=== PATIENT | female | born 1960 | race Caucasian/White ===

== ENCOUNTER 2017-01-29 01:39 | Emergency (ER) | payer OTHER ==
[2017-01-29] MEDS ORDERED: XANAX PO ONE (01:50)
[2017-01-29] MEDS ORDERED: SOLU-MEDROL IV ONE (01:50)
[2017-01-29] MEDS ORDERED: BENADRYL IV ONE (01:50)
[2017-01-29] MEDS ORDERED: TYLENOL PO ONE (01:51)
--- NOTE | 2017-01-29 02:01 | PROVIDER DOCUMENTATION ---
HPI-General Adult - General Chief Complaint: Allergic Reaction Stated Complaint: allergic reaction Time Seen by Provider: 01/29/17 01:48 Source: patient Allergies/Adverse Reactions: Patient Allergies Allergy/AdvReac Type Severity Reaction Status Date / Time Sulfa (Sulfonamide Allergy Severe SHORTNESS Verified 01/29/17 01:54 Antibiotics) OF BREATH aspirin AdvReac Severe PUD/GASTRIC Verified 01/29/17 01:54 IRRITATION pregabalin [From Lyrica] AdvReac Severe DIZZINESS Verified 01/29/17 01:54 fentanyl [From Duragesic] AdvReac Intermediate NAUSEA Verified 01/29/17 01:54 morphine AdvReac Intermediate NAUSEA Verified 01/29/17 01:54 Home Medications: Home Medication List Medication Instructions Recorded Confirmed Last Taken Type Alprazolam [Xanax] 1 mg PO BID PRN 01/29/17 01/29/17 01/28/17 History Amitriptyline [Elavil] 50 mg PO HS 01/29/17 01/29/17 01/28/17 History Amlodipine Besylate [Norvasc] 5 mg PO DAILY 01/29/17 01/29/17 01/28/17 History Dicyclomine [Bentyl] 20 mg PO BID PRN 01/29/17 01/29/17 Unknown History Estradiol 1 mg PO DAILY 01/29/17 01/29/17 01/28/17 History Famotidine [Pepcid] 20 mg PO BID #30 tablet 01/29/17 Unknown Rx Furosemide [Lasix] 20 mg PO DAILY 01/29/17 01/29/17 01/28/17 History Hydrocodone/Acetaminophen [[place] 1 each PO BID PRN 01/29/17 01/29/17 01/28/17 History 10-325 Tablet] Methylprednisolone [Medrol Dosepak] 4 mg PO DIRECTED #1 package 01/29/17 Unknown Rx Nebivolol HCl [Bystolic] 10 mg PO DAILY 01/29/17 01/29/17 01/28/17 History Potassium Chloride 20 meq PO DAILY 01/29/17 01/29/17 01/28/17 History Pramipexole [Mirapex] 0.25 mg PO QHS 01/29/17 01/29/17 01/28/17 History Tizanidine HCl [Zanaflex] 4 mg PO DAILY 01/29/17 01/29/17 Unknown History - History of Present Illness -Gen Adult Nature of Presenting Problems: Pt is a 56 yof who presents to ER via EMS with CC of an allergic reaction. Pt reports that she ate shrimp last night at approximately 2230 and at 0030, pt began to develop hives, swollen lips, and itched all over. 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 Location of Pain/Injury: reports: generalized Pain Radiation: reports: no radiation Quality of Pain: reports: other (itching) Severity: reports: moderate Onset/Duration: reports: 1-3 hours ago Timing: reports: improving Context/Activities at Onset: reports: eating Associated Symptoms: reports: shortness of breath, other (itching; swollen lips) . denies: anxiety, arm pain, back/neck pain, chest pain, constipation, cough, diaphoresis, diarrhea, dizziness, EENT symptoms, fatigue, loss of appetite, muscle aches, nausea, rash, pain with inspiration, swelling/mass in abdomen, syncope, vomiting, weakness, trouble walking Review of Systems - Adult - REVIEW OF SYSTEMS - ADULT Constitutional: denies: chills, fever, fatique, night sweats, weight gain, weight loss Eyes: reports: no symptoms reported Ears, Nose, Mouth & Throat: reports: no symptoms reported Cardiovascular: reports: no symptoms reported Respiratory: reports: no symptoms reported Gastrointestinal: reports: no symptoms reported Genitourinary: reports: no symptoms reported Musculoskeletal: reports: no symptoms reported Integumentary: reports: itching. denies: hives, hair loss, mole changes, nail changes, rash, skin sores/ulcer, skin thickening Neurological: reports: no symptoms reported Psychiatric: reports: no symptoms reported Endocrine: reports: no symptoms reported Hematologic/Lymphatic: reports: no symptoms reported Allergic/Immunologic: reports: allergic reactions, food allergy, hives. denies : allergic rhinitis, asthma, eczema, frequent infections, hay fever, positive PPD, urticaria All Other Systems: Reviewed and Negative Past History - Adult - PAST MEDICAL HISTORY-ADULT Review of Records: reports: Nursing Assessment Review, Medications Reviewed Cardiovascular: reports: HTN Respiratory: reports: COPD Musculoskeletal: reports: arthritis, fibromyalgia - PRIOR SURGERIES/PROCEDURES Surgical/Procedure History: reports: hysterectomy - IMMUNIZATION STATUS Childhood Immunizations: See Nurse Assessment Flu Vaccine: See Nurse Assessment Physical Exam-General - PHYSICAL EXAM-ADULT Initial Vital Signs Reviewed: Yes - CONSTITUTIONAL General Appearance: alert, moderate distress. negative: appears well, no apparent distress, mild distress, severe distress, cachetic, obese, thin, anxious, lethargic, slow to respond, obtunded, combative - RESPIRATORY Respiratory: chest non-tender, lungs clear, normal breath sounds, no pleuratic chest pain, no respiratory distress, no accessory muscle use. negative: respiratory distress, decreased breath sounds, accessory muscle use, wheezing - CARDIOVASCULAR Cardiovascular: normal peripheral pulses, regular rate, rhythm. negative: bradycardia, tachycardia, irregularly irregular - GASTROINTESTINAL (ABDOMEN) Abdominal Exam: normal bowel sounds, non tender, soft. negative: abnormal bowel sounds, distended, tenderness, mass - SKIN Integumentary: normal turgor, warm/dry, other (flush). negative: normal color - NEUROLOGIC Neurologic: grossly normal, no motor/sensory deficits. negative: facial droop, focal weakness, motor weakness, sensory deficit - PSYCHIATRIC Psych/Mental Status: normal thought content, normal thought process, oriented x 3, anxious. negative: normal mood/affect Progress - PLAN OF CARE/RESULTS Progress/Plan/Lab Results: Vital Signs - 24 hr 01/29/17 01/29/17 01:47 02:17 Temperature 96.9 F L Pulse Rate 77 79 Respiratory 20 20 Rate Blood Pressure 139/88 119/72 O2 Sat by Pulse 98 97 Oximetry Orders Category Date Time Status Acetaminophen [Tylenol] Med 01/29/17 01:51 Discontinued 650 mg PO NOW ONE Alprazolam [Xanax] Med 01/29/17 01:50 Discontinued 0.5 mg PO NOW ONE Diphenhydramine [Benadryl] Med 01/29/17 01:50 Discontinued 50 mg IV NOW ONE Methylprednisolone Sod Succ [Solu-Medrol] Med 01/29/17 01:50 Discontinued 125 mg IV NOW ONE Departure - Departure Time of Disposition Order: 02:47 DIAGNOSIS: Food allergy Allergic reaction Qualifiers: Encounter type: initial encounter Qualified Code(s): T78.40XA - Allergy, unspecified, initial encounter Disposition: HOME 01 Certified Medical Emergency: Emergent Condition: Stable Additional Instructions: ED Follow Up Instructions: You have been treated by a care provider in the Emergency Department. These instructions are being provided to you so you can have an understanding of how to care for yourself upon discharge. Upon discharge from the Emergency Department, you are responsible for making arrangements for follow-up care by a physician of your choice. Take all prescribed medications as directed. Return to the Emergency Department immediately for any new or worsening symptoms. You may call the Physician Referral phone number at [phone] to obtain a list of Physicians who are taking new patients. Prescriptions: Methylprednisolone [Medrol Dosepak] 4 mg PO DIRECTED #1 package Famotidine [Pepcid] 20 mg PO BID #30 tablet Attestation - Scribe Verification/Attestation Scribe:: Jasper Oropeza Acting as Scribe for:: George Siu Scribe documention review:: This chart was documented by a scribe and accurately reflects the service the provider performed and the decisions made by the provider.
[2017-01-29 03:46] VITALS: BP 106/67
== END 2017-01-29 03:51 | disposition home or self-care (01) ==
LOC: EDBD → ED 01:39
DX: T78.1XXA Other adverse food reactions, not elsewhere classified, initial encounter (principal); L50.9 Urticaria, unspecified; R22.0 Localized swelling, mass and lump, head; L29.9 Pruritus, unspecified; R06.02 Shortness of breath; I10 Essential (primary) hypertension; J44.9 Chronic obstructive pulmonary disease, unspecified; M19.90 Unspecified osteoarthritis, unspecified site; Z79.899 Other long term (current) drug therapy; M79.7 Fibromyalgia
CPT/HCPCS: 96374; J1200; J2930